=== PATIENT | male | born 1945 | race Caucasian/White ===

== ENCOUNTER 2016-09-04 12:10 | Emergency (ER) | payer OTHER, MEDICARE ==
[~2016-09-04] VITALS: Ht 172.7 cm; Wt 97.5 kg
[~2016-09-04 12:10] MED LIST: AMPICILLIN500 MG PO; ATENOLOL PO; ATENOLOL100 MG PO; DAYPRO600 M1 PO; FINASTERIDE5 M1 PO; FLOMAX0.4 MG PO; LISINOPRIL PO; PERCOCET 500 MG1 TAB PO; ROBAXIN750 MG PO; VICODIN 500 MG-1 TAB PO; [UNRECOGNIZED DRUG - OTHER] PO
== END 2016-09-04 14:09 | disposition home or self-care (01) ==
LOC: ED 12:10
DX: M54.2 Cervicalgia (principal); Z87.442 Personal history of urinary calculi; Z79.899 Other long term (current) drug therapy; V49.88XA Car occupant (driver) (passenger) injured in other specified transport accidents, initial encounter; Y93.89 Activity, other specified; Y92.413 State road as the place of occurrence of the external cause; Y99.9 Unspecified external cause status

== ENCOUNTER → 2018-10-13 | Outpatient (CLI) | payer MEDICARE ==
[~2018-10-13] MED LIST changes: +LEVOFLOXACIN500 MG PO
--- NOTE | ~2018-10-13 | EKG ---
[place], [place] ELECTROCARDIOGRAM REPORT NAME: EVANGELINA MEDRANO UNIT #: [id number] ROOM: DOCTOR: EPIPHANY DRAFT REPORT BIRTHDATE: [birth year] [facility] Test Date: 2018-10-13 Test Time: 10:14:35 Pat Name: EVANGELINA MEDRANO Department: Room: Gender: Freight Team Associate: : 1945 Requested By: MIKE NOVOA CNP Order Number: [id number] Reading MD: David Silverman MD Measurements Intervals [place] Rate: 57 P: 4 NV: 126 QRS: -1 QRSD: 94 T: 9 QT: 438 QTc: 427 Interpretive Statements Sinus rhythm Nonspecific ST T changes Electronically Signed On 10-14-2018 9:14:18 PDT by David Silverman MD CM:EKGRPT:ELECTROCARDIOGRAM REPORT [id number] MIKE NOVOA CNP EPIPHANY DRAFT REPORT MIKE NOVOA CNP
== END | disposition home or self-care (01) ==
LOC: RAD 09:10
DX: J44.9 Chronic obstructive pulmonary disease, unspecified (principal); I10 Essential (primary) hypertension

== ENCOUNTER 2018-11-01 20:46 | Emergency (ER) | payer MEDICARE ==
[~2018-11-01] VITALS: Ht 172.7 cm; Wt 81.6 kg
--- NOTE | ~2018-11-01 | EKG ---
[place], [place] ELECTROCARDIOGRAM REPORT NAME: EVANGELINA MEDRANO UNIT #: [id number] ROOM: DOCTOR: EPIPHANY DRAFT REPORT BIRTHDATE: [birth year] [facility] Test Date: 2018-11-01 Test Time: 21:00:48 Pat Name: EVANGELINA MEDRANO Department: Room: Gender: M [employer] Apprentice: : 1945 Requested By: ROLO DA SILVA Order Number: [id number] Reading MD: Isabel Montero MD Measurements Intervals [place] Rate: 68 P: 24 CA: 149 QRS: -4 QRSD: 95 T: 3 QT: 424 QTc: 451 Interpretive Statements Sinus rhythm Left ventricular hypertrophy Compared to ECG 10/13/2018 10:14:35 Left ventricular hypertrophy now present Electronically Signed On 11-03-2018 14:45:52 PDT by Isabel Montero MD CM:EKGRPT:ELECTROCARDIOGRAM REPORT [id number] ROLO DA SILVA MD EPIPHANY DRAFT REPORT ROLO DA SILVA MD
[~2018-11-01 20:46] MED LIST changes: -LEVOFLOXACIN500 MG PO
[2018-11-01 21:44] LABS: BASO # 0.1 10*3/uL (0.0-0.1); BASO % 0.5 % (0.0-1.0); EOS # 0.3 10*3/uL (0.0-0.4); HEMATOCRIT 38.8 % (42.0-52.0); HEMOGLOBIN 13.3 g/dl (14.0-18.0); LYMPH # 1.6 10*3/uL (1.3-4.4); LYMPH % 10.4 % (27.0-41.0); MEAN CELL VOLUME 93.3 fl (80.0-94.0); MEAN CORPUSCULAR HGB CONC 34.3 g/dl (33.0-37.0); MEAN PLATELET VOLUME 9.4 fl (9.6-12.3); MONO # 1.7 10*3/uL (0.1-1.0); MONO % 11.2 % (3.0-9.0); NEUT # 11.3 10*3/uL (2.3-7.9); NEUT % 73.6 % (47.0-73.0); PLATELET COUNT AUTOMATED 324 10*3/uL (130-400); RED BLOOD COUNT 4.16 10*6/uL (4.50-5.90); RED CELL DISTRI WIDTH 13.5 % (0-14.5); WHITE BLOOD COUNT 15.4 10*3/uL (4.8-10.8)
[2018-11-01 21:55] LABS: ACT PARTIAL THROMBO TIME 23.4 SECONDS (20.0-32.1); INTERNATIONAL NORM RATIO 0.9 (2.0-3.5)
[2018-11-01 22:00] LABS: ALBUMIN 3.1 gm/dl (3.1-4.5); ALKALINE PHOSPHATASE 59 U/L (45-117); BUN 30 mg/dl (7-24); CHLORIDE 98 mmol/L (98-107); CREATININE 1.15 mg/dL (0.70-1.30); LIPASE 107 U/L (73-393); POTASSIUM 3.1 mmol/L (3.5-5.1); SGOT/AST 13 IU/L (3-35); SGPT/ALT 16 U/L (12-78); SODIUM 134 mmol/L (136-145); TOTAL PROTEIN 7.1 gm/dL (6.4-8.2)
[2018-11-01 22:08] LABS: TROPONIN I < 0.015 ng/ml (<0.045)
[2018-11-01 23:40] LABS: BILIRUBIN NEGATIVE (NEGATIVE); BLOOD 3+ (NEGATIVE); CLARITY SL CLOUDY (CLEAR); COLOR YELLOW (YELLOW); GLUCOSE NEGATIVE (NEGATIVE); KETONE NEGATIVE (NEGATIVE); LEUKO ESTERASE TRACE (NEGATIVE); NITRITE NEGATIVE (NEGATIVE); SPECIFIC GRAVITY 1.015 (1.005-1.030)
[2018-11-02 00:18] LABS: EPITHELIAL CELLS 25-30
[2018-11-02 00:19] LABS: RBC 31-40 rbc/hpf (0-2)
[2018-11-02] MEDS ORDERED: LEVOFLOXACIN500 MG PO ×2 (00:55→02:02)
== END 2018-11-02 01:45 | disposition home or self-care (01) ==
LOC: ED 20:46
PROVIDERS: Emergency Medicine Emergency Medical Services
DX: R55 Syncope and collapse (principal); R33.9 Retention of urine, unspecified; Z98.890 Other specified postprocedural states; Z79.899 Other long term (current) drug therapy; Z96.651 Presence of right artificial knee joint